=== PATIENT | male | born 1960 | race Caucasian/White ===

== ENCOUNTER 2016-08-02 13:46 | Emergency (ER) | payer BC ==
[2016-08-02 15:48] LABS: HEMOGLOBIN 13.7 gm/dl (14.0-17.5); RED BLOOD COUNT 4.56 M/UL (4.20-5.50); WHITE BLOOD COUNT 8.2 K/UL (4.5-11.0)
== END 2016-08-02 18:11 | disposition home or self-care (01) ==
LOC: ER1 13:46
PROVIDERS: Physician Assistant
DX: R00.2 Palpitations (principal); R61 Generalized hyperhidrosis; Z79.899 Other long term (current) drug therapy
CPT/HCPCS: 36415; 80053; 82550; 82553; 83874; 84443; 84484; 85025; 99285

== ENCOUNTER → 2016-11-03 | Outpatient (CLI) | payer BC ==
[2016-11-03 09:29] LABS: HEMOGLOBIN 15.1 gm/dl (14.0-17.5); RED BLOOD COUNT 5.02 M/UL (4.20-5.50); WHITE BLOOD COUNT 9.5 K/UL (4.5-11.0)
[2016-11-03 09:49] LABS: BUN/CREATININE RATIO 14 (0-10)
== END ==
LOC: LAB 08:25
PROVIDERS: Emergency Medicine
DX: J30.89 Other allergic rhinitis (principal); K21.9 Gastro-esophageal reflux disease without esophagitis; E78.2 Mixed hyperlipidemia
CPT/HCPCS: 36415; 80053; 80061; 83704; 84153; 85027

== ENCOUNTER → 2020-07-30 | Outpatient (CLI) | payer BC, OTHER ==
[~2020-07-30] MED LIST: ATORVASTATIN CA10 MG PO; FLONASE 0.05% N16 GM; OMEPRAZOLE20 MG PO; VITAMIN D350 MCG PO; XYZAL5 MG PO
[2020-07-30 10:41] LABS: HEMOGLOBIN 15.1 gm/dl (14.0-17.5); RED BLOOD COUNT 4.97 M/UL (4.20-5.50); WHITE BLOOD COUNT 8.4 K/UL (4.5-11.0)
[2020-07-31 19:11] LABS: CHOLESTEROL, TOTAL 203 mg/dL (100-199); HDL SIZE 8.4 nm (>=9.2); HDL-C 42 mg/dL (>39); HDL-P (TOTAL) 27.6 umol/L (>=30.5); LARGE HDL-P 1.3 umol/L (>=4.8); LARGE VLDL-P 2.7 nmol/L (<=2.7); LDL SIZE 20.8 nm (>20.5); LDL SIZE 20.8 nm (>=20.8); LDL-C 140 mg/dL (0-99); LDL-P 1554 nmol/L (<1000); LP-IR SCORE 63 (<=45); SMALL LDL-P 815 nmol/L (<=527); TRIGLYCERIDES 116 mg/dL (0-149); VLDL SIZE 42.3 nm (<=46.6)
== END ==
LOC: LAB 10:08
PROVIDERS: Emergency Medicine
DX: E55.9 Vitamin D deficiency, unspecified (principal); E78.2 Mixed hyperlipidemia; G44.89 Other headache syndrome; H81.03 Meniere's disease, bilateral; H81.13 Benign paroxysmal vertigo, bilateral; H81.4 Vertigo of central origin; I12.9 Hypertensive chronic kidney disease with stage 1 through stage 4 chronic kidney disease, or unspecified chronic kidney disease; N18.30 Chronic kidney disease, stage 3 unspecified; K21.9 Gastro-esophageal reflux disease without esophagitis; L84 Corns and callosities; M51.36 Other intervertebral disc degeneration, lumbar region; M54.2 Cervicalgia; R05 Cough; R53.83 Other fatigue
CPT/HCPCS: 36415; 80053; 80061; 83704; 84153; 84550; 85025

== ENCOUNTER → 2020-08-18 | Outpatient (CLI) | payer BC | LOC: US 14:02 | DX: E04.2 Nontoxic multinodular goiter (principal) | CPT/HCPCS: 76536 ==

== ENCOUNTER → 2021-01-05 | Outpatient (CLI) | payer BC ==
[2021-01-07 11:14] LABS: CHOLESTEROL, TOTAL 152 mg/dL (100-199); HDL SIZE 8.6 nm (>=9.2); HDL-C 45 mg/dL (>39); HDL-P (TOTAL) 30.6 umol/L (>=30.5); LARGE HDL-P 2.9 umol/L (>=4.8); LARGE VLDL-P 2.9 nmol/L (<=2.7); LDL SIZE 20.7 nm (>20.5); LDL SIZE 20.7 nm (>=20.8); LDL-C 87 mg/dL (0-99); LDL-P 927 nmol/L (<1000); LP-IR SCORE 71 (<=45); SMALL LDL-P 402 nmol/L (<=527); TRIGLYCERIDES 107 mg/dL (0-149); VLDL SIZE 46.7 nm (<=46.6)
== END ==
LOC: LAB 08:21
PROVIDERS: Emergency Medicine
DX: E78.2 Mixed hyperlipidemia (principal); E55.9 Vitamin D deficiency, unspecified; I12.9 Hypertensive chronic kidney disease with stage 1 through stage 4 chronic kidney disease, or unspecified chronic kidney disease; N18.2 Chronic kidney disease, stage 2 (mild); R53.83 Other fatigue
CPT/HCPCS: 36415; 80053; 80061; 83704

== ENCOUNTER → 2021-09-07 | Outpatient (CLI) | payer BC | LOC: HEART 5 07:58 | DX: I20.9 Angina pectoris, unspecified (principal); R00.2 Palpitations; I49.3 Ventricular premature depolarization; I07.1 Rheumatic tricuspid insufficiency; I27.20 Pulmonary hypertension, unspecified | CPT/HCPCS: 78452; 93306; A9502; J2785 ==

== ENCOUNTER → 2021-10-27 | Outpatient (CLI) | payer BC ==
[~2021-10-27] MED LIST changes: +ASPIRIN EC81 MG PO; +CLARITIN10 MG PO; +FLOMAX 0.4 MG0.4 MG PO; +ISOSORBIDE MONO30 MG PO; +LOPRESSOR 25 MG25 MG PO
== END ==
LOC: CATH 11:39
DX: I25.118 Atherosclerotic heart disease of native coronary artery with other forms of angina pectoris (principal); I49.3 Ventricular premature depolarization; E78.5 Hyperlipidemia, unspecified; K21.9 Gastro-esophageal reflux disease without esophagitis; Z87.891 Personal history of nicotine dependence; Z79.82 Long term (current) use of aspirin; Z79.899 Other long term (current) drug therapy
CPT/HCPCS: 99152; 99153; C1769; C1894; J1644; J2250; J3010; J7040; Q9967

== ENCOUNTER → 2022-01-28 | Outpatient (CLI) | payer BC ==
[2022-01-28 09:36] LABS: HEMOGLOBIN 14.4 gm/dl (14.0-17.5); RED BLOOD COUNT 4.74 M/UL (4.20-5.50); WHITE BLOOD COUNT 8.3 K/UL (4.5-11.0)
[2022-01-29 09:13] LABS: CREATININE, URINE 168.8 mg/dL (Not Estab.)
[2022-01-31 13:10] LABS: CHOLESTEROL, TOTAL 142 mg/dL (100-199); HDL SIZE 8.6 nm (>=9.2); HDL-C 43 mg/dL (>39); HDL-P (TOTAL) 26.5 umol/L (>=30.5); LARGE HDL-P 2.4 umol/L (>=4.8); LARGE VLDL-P 1.3 nmol/L (<=2.7); LDL SIZE 20.8 nm (>20.5); LDL SIZE 20.8 nm (>=20.8); LDL-C 82 mg/dL (0-99); LDL-P 1003 nmol/L (<1000); LP-IR SCORE 52 (<=45); SMALL LDL-P 450 nmol/L (<=527); TRIGLYCERIDES 89 mg/dL (0-149); VLDL SIZE 42.6 nm (<=46.6)
== END ==
LOC: LAB 09:06
PROVIDERS: Emergency Medicine
DX: J30.9 Allergic rhinitis, unspecified (principal); I10 Essential (primary) hypertension; K21.9 Gastro-esophageal reflux disease without esophagitis; E78.2 Mixed hyperlipidemia
CPT/HCPCS: 36415; 80053; 80061; 82043; 82570; 83704; 84443; 84550; 85025

== ENCOUNTER → 2022-01-31 | Outpatient (CLI) | payer BC | LOC: EXRD 13:43 | DX: E04.2 Nontoxic multinodular goiter (principal) | CPT/HCPCS: 76536 ==